=== PATIENT | female | born 1945 | race Caucasian/White ===

== ENCOUNTER 2019-03-12 13:38 | Emergency (ER) | payer MEDICARE, OTHER ==
[~2019-03-12] VITALS: Wt 80.0 kg
[~2019-03-12 13:38] MED LIST: AZIT250T PO; IBUP-1542 PO; OSEL75CA23 PO
[2019-03-12 13:41] VITALS: BP 149/89; PULSE 82; RESP 18
[2019-03-12] MEDS ORDERED: KETOROLAC 30 MG INJ IM STA (14:00)
[2019-03-12] MEDS ORDERED: MELO7.5T38 PO (15:02)
--- NOTE | 2019-03-12 15:10 | ERD ---
ER Documentation Chief Complaint Chief Complaint LOWER PAIN X 2 - 3 DAYS; DENIES FLANK/DYSURIA HPI Patient is a 73-year-old female with chronic back pain, presents the ER for concerns of acute exacerbation of lower back pain times 3 days. Patient is brought in by her daughter and granddaughter. Patient states the pain is localized to her lower back in particular on the right side. Patient denies any radiation of the pain. Patient denies any falls or trauma. Patient denies any saddle anesthesia, urinary incontinence or stool incontinence. Patient denies any fevers, chills, nausea, vomiting, dysuria, frequency, urgency or hematuria. Patient denies any chest pain or shortness of breath. Patient denies any abdominal pain. No recent travel. ROS All systems reviewed and are negative except as per history of present illness. Medications Home Meds Active Scripts Meloxicam* (Meloxicam*) 7.5 Mg Tablet, 7.5 MG PO DAILY, #30 TAB Prov:GWEN ALCANTARA PA-C 03/12/19 Oseltamivir Phosphate* (Tamiflu*) 75 Mg Capsule, 75 MG PO BID for 5 Days, CAP Prov:ELVIA RAMESH MD 01/12/16 Ibuprofen* (Motrin*) 600 Mg Tab, 600 MG PO Q6H PRN for PAIN AND OR ELEVATED TEMP, #30 TAB Prov:ELVIA RAMESH MD 01/12/16 Azithromycin* (Zithromax*) 250 Mg Tablet, 250 MG PO .ZPACK DIRECTED, #6 TAB TAKE 500 MG (2 TABS) THE FIRST DAY THEN 250 MG (1 TAB) DAYS 2-5 Prov:ELVIA RAMESH MD 01/12/16 Allergies Allergies: Coded Allergies: No Known Drug Allergies (Verified Allergy, Unknown, 01/12/16) PMhx/Soc Medical and Surgical Hx: pt denies Medical Hx History of Surgery: Yes (tubal ligation, back sx) Anesthesia Reaction: No Hx Neurological Disorder: No Hx Respiratory Disorders: No Hx Cardiac Disorders: No Hx Psychiatric Problems: No Hx Miscellaneous Medical Probl: Yes (chronic back pain) Hx Alcohol Use: No Hx Substance Use: No Hx Tobacco Use: No Smoking Status: Never smoker FmHx Family History: No diabetes Physical Exam Vitals Vital Signs Date Temp Pulse Resp B/P (MAP) Pulse Ox O2 O2 Flow FiO2 Time Delivery Rate 03/12/19 99.1 82 18 149/89 99 13:41 (109) Physical Exam GENERAL: Well-developed, well-nourished female. Appears in no acute distress. Speaking in full sentences HEAD: Normocephalic, atraumatic. EYES: Pupils are equally reactive bilaterally. EOMs grossly intact. No conjunctival erythema. ENT: Moist mucous membranes. No uvula deviation. No kissing tonsils. NECK: Supple. No meningismus. Normal range of motion of the neck. LUNG: Clear to auscultation bilaterally. No rhonchi, wheezing, rales or coarse breath sounds. HEART: Regular rate and rhythm. No murmurs, rubs or gallops. Equal pulses in bilateral upper extremities. ABDOMEN: No pulsatile masses noted. Soft, nontender, and nondistended. Positive bowel sounds in all four quadrants. No rebound tenderness, no guarding. (-) McBurney's point tenderness. No CVA tenderness. BACK: No midline tenderness. Tender to palpation of the right lumbar paraspinal muscles. Positive spasms noted. EXTREMITIES: Equal pulses bilaterally. No peripheral clubbing, cyanosis or edema. No unilateral leg swelling. NEUROLOGIC: Alert and oriented. Moving all four extremities without any difficulty. Normal speech. Steady gait. SKIN: Normal color. Warm and dry. No rashes or lesions. Results 24 hrs Current Medications Medications Dose Sig/Dylan Start Time Status Last (Trade) Ordered Route PRN Stop Time Admin Dose Reason Admin Ketorolac 30 mg ONCE STAT 03/12/19 DC 03/12/19 Tromethamine IM 14:00 14:09 (Toradol) 03/12/19 14:01 Procedures/MDM ED COURSE: The patient was stable throughout ED course. I kept the patient and/or family informed of laboratory and diagnostic imaging results throughout the ED course. DIAGNOSTIC IMAGING: Read by radiologist. Patient: KING GARCIA : 1945 Age: 73 Sex: F MR #: [id number] DOS: 03/12/19 1400 Ordering MD: GWEN ALCANTARA PA-C Location: [facility] Room/Bed: PROCEDURE: XR Lumbar Spine. CLINICAL INDICATION: Low back pain TECHNIQUE: AP, lateral and cone-down lateral view of the lumbar spine were obtained. COMPARISON: No prior studies are available for comparison. FINDINGS: There is normal vertebral mineralization and alignment. No fracture or subluxation is seen. There is moderate L5-S1 and mild L4-L5 degenerative changes with loss of disc space height and endplate osteophytosis. Mild atherosclerotic calcifications of the aorta. IMPRESSION: 1. Spondylosis of the lumbar spine with moderate degenerative changes at the level of L5-S1 and mild degenerative changes at the level of L4-L5. 2. No acute fracture or subluxation. RPTAT: QQ Physician Rajani Date Time Electronically viewed and signed by Physician Rajani on 03/12/2019 14:40 rV/ CC: GWEN ALCANTARA PA-C [id number] PROCEDURES: None. MEDICATIONS GIVEN: Toradol IM Patient tolerated medication well with no adverse reactions. Patient reported improvement in pain. MEDICAL DECISION MAKING: This is a 73-year-old female with past medical history of chronic back pain, presents the ER for concerns of acute exacerbation of lower back pain times 3 days.. Vital signs were reviewed. Patient was afebrile. Patient denied any saddle anesthesia, urinary incontinence, bowel incontinence, night pain or recent trauma. Patient was given Toradol for her pain. X-ray imaging showed concerns of 1. Spondylosis of the lumbar spine with moderate degenerative changes at the level of L5-S1 and mild degenerative changes at the level of L4- L5. 2. No acute fracture or subluxation. Upon reexamination, patient had improvement in pain. Patient will be discharged with a prescription for meloxicam and advised to follow-up with her primary care physician for additional management of her symptoms. Patient may need an MRI for further evaluation of her back pain. At this time, patient's presentation is most consistent with acute exacerbation of chronic back pain. Low suspicion for cauda equine syndrome, spinal fractures, epidural abscess, spinal metastases, osteomyelitis, aortic dissection, ruptured or leaking AA, DJD, sciatica, pyelonephritis or nephrolithiasis. PRESCRIPTIONS: Meloxicam DISCHARGE: At this time, patient is stable for discharge and outpatient management. RICE therapy and ROM exercises were advised to avoid stiffness. I have instructed the patient to follow-up with his/her primary care physician in 1-2 days. I have discussed with the patient the possibility of needing to see an order entry specialist for further workup and imaging if the pain persists. I have instructed the patient to promptly return to the ER for any new or worsening symptoms including increased pain, swelling, warmth, urinary incontinence, stool incontinence, weakness or numbness. The patient and/or family expressed understanding of and agreement with this plan. All questions were answered. Home care instructions were provided. Disclaimer: Inadvertent spelling and grammatical errors are likely due to EHR/dictation software use and do not reflect on the overall quality of patient care. Also, please note that the electronic time recorded on this note does not necessarily reflect the actual time of the patient encounter. Departure Diagnosis: Primary Impression: Lower back pain Chronicity: unspecified Back pain laterality: unspecified Sciatica pres ence: unspecified whether sciatica present Qualified Codes: M54.5 - Low back pain Condition: Fair Patient Instructions: Back Pain (Acute Or Chronic) Referrals: [facility] YOU HAVE RECEIVED A MEDICAL SCREENING EXAM AND THE RESULTS INDICATE THAT YOU DO NOT HAVE A CONDITION THAT REQUIRES URGENT TREATMENT IN THE EMERGENCY DEPARTMENT. FURTHER EVALUATION AND TREATMENT OF YOUR CONDITION CAN WAIT UNTIL YOU ARE SEEN IN YOUR DOCTORS OFFICE WITHIN THE NEXT 1-2 DAYS. IT IS YOUR RESPONSIBILITY TO MAKE AN APPOINTMENT FOR FOLOW-UP CARE. IF YOU HAVE A PRIMARY DOCTOR --you should call your primary doctor and schedule an appointment IF YOU DO NOT HAVE A PRIMARY DOCTOR YOU CAN CALL OUR PHYSICIAN REFERRAL HOTLINE AT IF YOU CAN NOT AFFORD TO SEE A PHYSICIAN YOU CAN CHOSE FROM THE FOLLOWING [facility] [address] [facility] [address] [facility] [address] [facility] [address] [facility] [facility] [address] [facility]. [facility]. [address] [facility]. [facility] YOU HAVE RECEIVED A MEDICAL SCREENING EXAM AND THE RESULTS INDICATE THAT YOU DO NOT HAVE A CONDITION THAT REQUIRES URGENT TREATMENT IN THE EMERGENCY DEPARTMENT. FURTHER EVALUATION AND TREATMENT OF YOUR CONDITION CAN WAIT UNTIL YOU ARE SEEN IN YOUR DOCTORS OFFICE WITHIN THE NEXT 1-2 DAYS. IT IS YOUR RESPONSIBILITY TO MAKE AN APPOINTMENT FOR FOLOW-UP CARE. IF YOU HAVE A PRIMARY DOCTOR --you should call your primary doctor and schedule and appointment IF YOU DO NOT HAVE A PRIMARY DOCTOR YOU CAN CALL OUR PHYSICIAN REFERRAL HOTLINE AT . IF YOU CAN NOT AFFORD TO SEE A PHYSICIAN YOU CAN CHOSE FROM THE FOLLOWING [facility] INSTITUTIONS: [facility] [address] [place] [address] [facility] [address] [place], [place] [id number] [place] [address] [address] [place] [address] Additional Instructions: Llame al doctor MAANA y amanda kilo NARA PARA DENTRO DE 1-2 BRADY.Dgale a la secretaria que nosotros le instruimos hacer esta nara.Avise o llame si mills condicin se empeora antes de la nara. Regresa aqui si peor o no mejor. GWEN ALCANTARA PA-C Mar 12, 2019 15:10
== END 2019-03-12 15:20 | disposition home or self-care (01) ==
LOC: FTE 13:38
DX: M54.5 Low back pain (principal)
CPT/HCPCS: 72100; 96372; 99284; J1885